=== PATIENT | male | born 1950 | race Caucasian/White ===

== ENCOUNTER 2016-12-03 22:59 | Emergency (ER) | payer BC ==
[2016-12-03 23:46] VITALS: BP 105/66; PULSE 86; TEMP 98.3; BMI 36.9
[2016-12-04 02:21] LABS: BASOPHIL 0.9 % (0-2.0); EOSINOPHIL 1.9 % (0-4.5); MCH 27.8 pg (25.7-33.7); MEAN CELL VOLUME 81.9 fl (80-96); MEAN PLT VOLUME 7.2 fl (7.5-11.1); NEUTROPHILS 85.4 % (42.8-82.8); PLATELET COUNT 189 K/MM3 (134-434); URINE APPEARANCE CLEAR; URINE BILIRUBIN NEGATIVE (NEGATIVE); URINE BLOOD NEGATIVE (NEGATIVE); URINE COLOR LT. YELLOW; URINE GLUCOSE (UA) NEGATIVE (NEGATIVE); URINE KETONE NEGATIVE (NEGATIVE); URINE LEUK ESTERASE NEGATIVE (NEGATIVE); URINE NITRITE NEGATIVE (NEGATIVE); URINE PROTEIN TRACE (NEGATIVE); URINE UROBILINOGEN 0.2 mg/dL (0.2-1.0); WHITE BLOOD COUNT 8.6 K/mm3 (4.0-10.0)
[2016-12-04 02:39] LABS: INR 1.06 (0.82-1.09); PROTHROMBIN TIME (PATIENT) 11.7 SEC (9.98-11.88)
[2016-12-04 02:49] LABS: ALBUMIN 3.4 g/dl (3.4-5.0); ANION GAP 8 (8-16); CALCIUM 9.4 mg/dL (8.5-10.1); CO2 29 mmol/L (21-32); CREATININE 1.3 mg/dL (0.7-1.3); GLUCOSE,RANDOM 109 mg/dL (74-106); MAGNESIUM 2.6 mg/dL (1.8-2.4); TOT PROT 6.9 g/dl (6.4-8.2)
[2016-12-04 02:50] LABS: ALK PHOS 74 U/L (45-117); BILIRUBIN,TOTAL 0.4 mg/dL (0.2-1.0); SGOT/AST 19 U/L (15-37); SGPT/ALT 41 U/L (12-78)
--- NOTE | 2016-12-04 04:15 | PDOC ---
History of Present Illness - General Chief Complaint: Seizure Stated Complaint: SEIZURE Time Seen by Provider: 12/03/16 23:24 - History of Present Illness Initial Comments: 12/04/16 04:14 CHIEF COMPLAINT: HISTORY OF PRESENT ILLNESS: 66 yo M with hx of generalizes seizures (per Dr. Aly) presents to ED s/p witnessed seizure by . is at bedside and reports that she was in the bedroom when she heard the patient in the living room wheezing. The patient had been watching baseball and when the went in to see him, he was awake with his eyes open but unresponsive. Patient states that he has no recollection of the incident and per patient just became responsive on arrival to the ED. PAST MEDICAL HISTORY: Denies past medical history FAMILY HISTORY: Denies SOCIAL HISTORY: Lives at home with ____. Occupation: . Denies tobacco, alcohol, illicit drug use. SURGICAL HISTORY: Denies ALLERGIES: No known drug allergies REVIEW OF SYSTEMS General/Constitutional: Denies fever or chills. Denies weakness, weight change. HEENT: Denies change in vision. Denies ear pain or discharge. Denies sore throat. Cardiovascular: Denies chest pain or shortness of breath. Respiratory: Denies cough, wheezing, or hemoptysis. Gastrointestinal: Denies nausea, vomiting, diarrhea or constipation. Denies rectal bleeding. Genitourinary: Denies dysuria, frequency, or change in urination. Musculoskeletal: Denies joint or muscle swelling or pain. Denies neck or back pain. Skin and breasts: Denies rash or easy bruising. Neurologic: Denies headache, vertigo, loss of consciousness, or loss of sensation. Psychiatric: Denies depression or anxiety. Endocrine: Denies increased thirst. Denies abnormal weight change. Hematologic/Lymphatic: Denies anemia, easy bleeding, or history of blood clots. Allergic/Immunologic: Denies hives or skin allergy. Denies latex allergy. PHYSICAL EXAM General Appearance: Well-appearing, appropriately dressed. No apparent distress , no intoxication. HEENT: EOMI, PERRLA, normal ENT inspection, normal voice, TMs normal, pharynx normal. No conjunctival pallor. No photophobia, scleral icterus. Neck: Supple. Trachea midline. No tenderness, rigidity, carotid bruit, stridor , lymphadenopathy, or thyromegaly. Respiratory/Chest: Lungs CTAB. No shortness of breath, chest tenderness, respiratory distress, accessory muscle use. No crackles, rales, rhonchi, stridor , wheezing, dullness Cardiovascular: RRR. S1, S2. No JVD, murmur, bradycardia, tachycardia. Vascular Pulses: Dorsalis-Pedis (R): 2+, Dorsalis-Pedis (L): 2+ Gastrointestinal/Abdominal: Normal bowel sounds. Abdomen soft, non-distended. No tenderness or rebound tenderness. No organomegaly, pulsatile mass, guarding , hernia, hepatomegaly, splenomegaly. Lymphatic: No adenopathy, tenderness. Musculoskeletal/Extremities: Normal inspection. FROM of all extremities, normal capillary refill. Pelvis Stable. No CVA tenderness. No tenderness to extremities, pedal edema, swelling, erythema or deformity. Integumentary: Appropriate color, dry, warm. 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 Fully oriented, alert. Appropriate mood/affect. Motor strength 5/5. No appreciable EOM palsy, facial droop or sensory deficit. 12/04/16 04:16 Past History - Past Medical History Allergies/Adverse Reactions: Allergies Allergy/AdvReac Type Severity Reaction Status Date / Time sulfamethoxazole Allergy Intermediate Hives Verified 12/03/16 23:44 [From Bactrim] trimethoprim [From Bactrim] Allergy Intermediate Hives Verified 12/03/16 23:44 ciprofloxacin Allergy Unknown Verified 12/03/16 23:44 Penicillins Allergy Unknown Verified 12/03/16 23:44 sulfasalazine Allergy Unknown Verified 12/03/16 23:44 Home Medications: Ambulatory Orders Aspirin [Aspir 81] 81 mg PO DAILY 05/21/12 Aspirin [ASA -] 81 mg PO DAILY #0 01/02/16 Levetiracetam [Keppra -] 250 mg PO BID #6 tablet 04/25/16 Levetiracetam [Keppra -] 500 mg PO BID #60 tablet 04/25/16 Atorvastatin Calcium 10 mg PO HS tablet 05/21/16 Bicalutamide 50 mg PO DAILY tablet 05/21/16 Levetiracetam 500 mg PO BID tablet 05/21/16 Anemia: No Asthma: No Cancer: Yes (prostate) Cardiac Disorders: No CVA: No COPD: No Dementia: No Diabetes: No GI Disorders: No Disorders: Yes (BPH) HTN: Yes Hypercholesterolemia: Yes Liver Disease: No Seizures: No Thyroid Disease: No - Surgical History Abdominal Surgery: No Appendectomy: No Cardiac Surgery: No Cholecystectomy: No Lung Surgery: No Neurologic Surgery: No Orthopedic Surgery: Yes (LEFT KNEE SURGERY) - Immunization History Immunization Up to Date: Yes - Psycho/Social/Smoking Cessation Hx Anxiety: No Suicidal Ideation: No Smoking Status: Yes Smoking History: Unknown if ever smoked Have you smoked in the past 12 months: No Number of Cigarettes Smoked Daily: 20 (Frequently uses E-cigs) If you are a former smoker, when did you quit?: 3 years Information on smoking cessation initiated: No Hx Alcohol Use: No Drug/Substance Use Hx: No Substance Use Type: None Hx Substance Use Treatment: No *Physical Exam - Vital Signs Last Vital Signs Temp Pulse Resp BP Pulse Ox 98.3 F 86 14 105/66 93 L 12/03/16 23:44 12/03/16 23:44 12/03/16 23:44 12/03/16 23:44 12/03/16 23:44 ED Treatment Course - LABORATORY CBC & Chemistry Diagram: 12/04/16 02:11 12/04/16 02:11 - ADDITIONAL ORDERS Additional order review: Laboratory Results 12/04/16 12/04/16 12/04/16 02:11 02:11 02:11 WBC 8.6 D Corrected WBC (auto) RBC 4.08 Hgb 11.3 L Hct 33.4 L MCV 81.9 MCH 27.8 MCHC 34.0 RDW 15.0 Plt Count 189 MPV 7.2 L Add Manual Diff Neutrophils % 85.4 H D Lymphocytes % 6.4 L D Monocytes % 5.4 Eosinophils % 1.9 Basophils % 0.9 Differential Comment Smudge Cells Platelet Estimate Platelet Comment Normal RBC Morphology RBC Morphology INR 1.06 Sodium 138 Potassium 4.0 Chloride 101 Carbon Dioxide 29 Anion Gap 8 BUN 31 H Creatinine 1.3 Creat Clearance w eGFR 54.90 Random Glucose 109 H Lactic Acid Calcium 9.4 Magnesium 2.6 H Total Bilirubin 0.4 AST 19 D ALT 41 Alkaline Phosphatase 74 Total Protein 6.9 Albumin 3.4 Urine Color Urine Appearance Urine pH Urine Protein Urine Glucose (UA) Urine Ketones Urine Blood Urine Nitrite Urine Bilirubin Urine Urobilinogen Ur Leukocyte Esterase 12/04/16 12/04/16 12/04/16 02:11 01:14 01:14 WBC Corrected WBC (auto) RBC Hgb Hct MCV MCH MCHC RDW Plt Count MPV Add Manual Diff Neutrophils % Lymphocytes % Monocytes % Eosinophils % Basophils % Differential Comment Smudge Cells Platelet Estimate Platelet Comment Normal RBC Morphology RBC Morphology INR Sodium Potassium Chloride Carbon Dioxide Anion Gap BUN Creatinine Creat Clearance w eGFR Random Glucose Lactic Acid 1.6 Calcium Magnesium Cancelled Total Bilirubin AST ALT Alkaline Phosphatase Total Protein Albumin Urine Color Lt. yellow Urine Appearance Clear Urine pH 6.0 Urine Protein Trace H Urine Glucose (UA) Negative Urine Ketones Negative Urine Blood Negative Urine Nitrite Negative Urine Bilirubin Negative Urine Urobilinogen 0.2 Ur Leukocyte Esterase Negative 12/04/16 12/04/16 12/04/16 01:14 01:14 01:14 WBC Cancelled Corrected WBC (auto) Cancelled RBC Cancelled Hgb Cancelled Hct Cancelled MCV Cancelled MCH Cancelled MCHC Cancelled RDW Cancelled Plt Count Cancelled MPV Cancelled Add Manual Diff Cancelled Neutrophils % Cancelled Lymphocytes % Cancelled Monocytes % Cancelled Eosinophils % Cancelled Basophils % Cancelled Differential Comment Cancelled Smudge Cells Cancelled Platelet Estimate Cancelled Platelet Comment Cancelled Normal RBC Morphology Cancelled RBC Morphology Cancelled INR Cancelled Sodium Cancelled Potassium Cancelled Chloride Cancelled Carbon Dioxide Cancelled Anion Gap Cancelled BUN Cancelled Creatinine Cancelled Creat Clearance w eGFR Cancelled Random Glucose Cancelled Lactic Acid Calcium Cancelled Magnesium Total Bilirubin Cancelled AST Cancelled ALT Cancelled Alkaline Phosphatase Cancelled Total Protein Cancelled Albumin Cancelled Urine Color Urine Appearance Urine pH Urine Protein Urine Glucose (UA) Urine Ketones Urine Blood Urine Nitrite Urine Bilirubin Urine Urobilinogen Ur Leukocyte Esterase 12/04/16 12/04/16 02:11 01:14 RBC 4.08 Cancelled MCV 81.9 Cancelled MCHC 34.0 Cancelled RDW 15.0 Cancelled MPV 7.2 L Cancelled Neutrophils % 85.4 H D Cancelled Lymphocytes % 6.4 L D Cancelled Monocytes % 5.4 Cancelled Eosinophils % 1.9 Cancelled Basophils % 0.9 Cancelled - RADIOLOGY Radiology Studies Ordered: Category Date Time Status HEAD CT WITHOUT CONTRAST [CT] Stat CT Scan 12/04/16 03:10 Taken *DC/Admit/Observation/Transfer Diagnosis at time of Disposition: Seizure - Discharge Dispostion Disposition: HOME Condition at time of disposition: Stable Admit: No - Referrals Referrals: Hebert Way MD [Primary Care Provider] - - Patient Instructions Printed Discharge Instructions: DI for Seizure Disorder -- Adult Additional Instructions: Please keep your appointment with Dr. Aly on as planned. If you experience any other seizure episodes, loss of consciousness, headache, chest pain, shortness of breath, palpitations, dizziness, or any new or worsening symptoms, please return to the ER.
--- NOTE | 2016-12-04 15:30 | EKG ---
Test Reason : Blood Pressure : / mmHG Vent. Rate : 067 BPM Atrial Rate : 067 BPM P-R Int : 170 ms QRS Dur : 092 ms QT Int : 380 ms P-R-T Axes : 060 -31 022 degrees QTc Int : 401 ms POOR DATA QUALITY, INTERPRETATION MAY BE ADVERSELY AFFECTED NORMAL SINUS RHYTHM LEFT AXIS DEVIATION CANNOT RULE OUT ANTERIOR INFARCT , AGE UNDETERMINED ABNORMAL ECG WHEN COMPARED WITH ECG OF 22-APR-2016 20:57, VENT. RATE HAS DECREASED BY 41 BPM MINIMAL CRITERIA FOR ANTERIOR INFARCT ARE NOW PRESENT Confirmed by KURT LEONE MD ([id number]) on 12/04/2016 3:30:39 PM Referred By: Confirmed By:KURT LEONE MD
== END 2016-12-04 04:27 | disposition home or self-care (01) ==
LOC: JER 22:59
DX: G40.309 Generalized idiopathic epilepsy and epileptic syndromes, not intractable, without status epilepticus (principal); I10 Essential (primary) hypertension; E78.00 Pure hypercholesterolemia, unspecified; Z85.46 Personal history of malignant neoplasm of prostate; Z79.82 Long term (current) use of aspirin; Z88.2 Allergy status to sulfonamides
CPT/HCPCS: 36415; 70450-TC; 80053; 81003; 83605; 83735; 85025; 85610; 87086; 93005; 93010; 99282-25

== ENCOUNTER 2020-11-26 09:50 | Emergency (ER) | payer OTHER ==
[2020-11-27 13:08] LABS: SARS-CoV-2 NAA Not Detected (Not Detected)
== END 2020-11-26 10:27 | disposition home or self-care (01) ==
LOC: JVIRT 09:50
DX: Z20.822 Contact with and (suspected) exposure to COVID-19 (principal)
CPT/HCPCS: C9803; Q3014-GT; U0003; U0005

== ENCOUNTER 2022-12-26 17:26 | Emergency (ER) | payer OTHER ==
[2022-12-26 17:39] VITALS: BP 140/62; PULSE 66; RESP 18; TEMP 98.2; BMI 33.1
[2022-12-26] MEDS ORDERED: DOXYCYCLINE HYCLATE 100 MG CAPSULE PO ONE ×2 (19:27→19:29)
== END 2022-12-26 19:55 | disposition home or self-care (01) ==
LOC: JER 17:26
DX: S91.101A Unspecified open wound of right great toe without damage to nail, initial encounter (principal); L03.115 Cellulitis of right lower limb; X58.XXXA Exposure to other specified factors, initial encounter
CPT/HCPCS: 99283-25

== ENCOUNTER 2023-10-27 18:10 | Emergency (ER) | payer OTHER ==
[2023-10-27 19:24] VITALS: BP 142/61; PULSE 80; RESP 17; BMI 31.9
[2023-10-27] MEDS ORDERED: ACETAMINOPHEN 325 MG TABLET (FP) ONE (20:09)
[2023-10-27] MEDS: ACETAMINOPHEN 325 MG TABLET (FP) PO ONE (20:11)
[2023-10-27 22:15] VITALS: TEMP 98.8
== END 2023-10-27 22:18 | disposition home or self-care (01) ==
LOC: JER 18:10
DX: U07.1 COVID-19 (principal); R05.9 Cough, unspecified; R68.83 Chills (without fever)
CPT/HCPCS: 0241U-QW; 70450-TC; 71045-TC-FY; 99285-25

== ENCOUNTER 2023-11-02 08:41 | Emergency (ER) | payer OTHER ==
[2023-11-02 09:05] VITALS: BP 110/56; PULSE 73; RESP 16; TEMP 98.1; BMI 33.4
[2023-11-02 10:30] LABS: HEMATOCRIT 29.1 % (35.4-49); MCH 28.2 pg (25.7-33.7); MCHC 34.4 g/dl (32.0-35.9); MEAN CELL VOLUME 81.9 fl (80-96); MEAN PLT VOLUME 6.9 fl (7.5-11.1); PLATELET COUNT 214 10^3/uL (134-434); RBC 3.56 M/mm3 (4.00-5.60); RDW 14.3 % (11.9-15.9); WHITE BLOOD COUNT 9.4 K/mm3 (4.0-10.0)
[2023-11-02 10:54] LABS: POTASSIUM 4.3 mmol/L (3.5-5.1)
[2023-11-02 10:57] LABS: CALCIUM 9.2 mg/dL (8.5-10.1)
[2023-11-02 10:59] LABS: BLOOD UREA NITROGEN 28.6 mg/dL (7-18)
[2023-11-02 11:00] LABS: CREATININE 1.4 mg/dL (0.55-1.3)
[2023-11-02 11:02] LABS: BILIRUBIN,TOTAL 0.4 mg/dL (0.2-1); TOT PROT 6.7 g/dl (6.4-8.2)
[2023-11-02] MEDS: SODIUM CHLORIDE 500 ML IV STA (11:30)
[2023-11-02] MEDS ORDERED: SODIUM CHLORIDE 0.9% 1000 ML INFUS.BAG IV ONE (11:36)
[2023-11-02 11:42] LABS: ANISOCYTOSIS 0; MACROCYTOSIS 0; OVALOCYTE 1+
[2023-11-02 11:43] LABS: PH,URINE 5.5 (5.0-8.0); URINE APPEARANCE CLEAR; URINE BILIRUBIN NEGATIVE (NEGATIVE); URINE COLOR YELLOW; URINE GLUCOSE (UA) NEGATIVE (NEGATIVE); URINE KETONE NEGATIVE (NEGATIVE); URINE LEUK ESTERASE NEGATIVE (NEGATIVE); URINE NITRITE NEGATIVE (NEGATIVE); URINE PROTEIN NEGATIVE (NEGATIVE); URINE UROBILINOGEN 0.2 mg/dL (0.2-1.0)
== END 2023-11-02 13:23 | disposition left against medical advice (07) ==
LOC: JER 08:41
DX: S50.02XA Contusion of left elbow, initial encounter (principal); S50.311A Abrasion of right elbow, initial encounter; R55 Syncope and collapse; U07.1 COVID-19; R05.9 Cough, unspecified; W01.0XXA Fall on same level from slipping, tripping and stumbling without subsequent striking against object, initial encounter
CPT/HCPCS: 0241U-QW; 36415; 80053; 81003; 83735; 84484; 85025; 87086; 93005; 93010; 99284-25

== ENCOUNTER 2024-01-22 08:25 | Emergency (ER) | payer OTHER ==
[2024-01-22 08:32] VITALS: BP 134/67; PULSE 72; RESP 16; TEMP 98.4; BMI 34.2
[2024-01-22 09:40] LABS: INR 1.09 (0.83-1.09); PROTHROMBIN TIME (PATIENT) 12.4 SEC (9.7-13.0)
[2024-01-22 09:43] LABS: ACTIVATED PTT 53.6 SECONDS (25.2-36.5); HEMATOCRIT 33.7 % (35.4-49); HEMOGLOBIN 10.8 G/dL (11.7-16.9); MCH 27.2 pg (25.7-33.7); MEAN PLT VOLUME 7.5 fl (7.5-11.1); PLATELET COUNT 226.4 10^3/uL (134-434); RBC 3.96 10^6/uL (4.00-5.60); RDW 15.4 % (11.9-15.9); WHITE BLOOD COUNT 9.1 10^3/uL (4.0-10.8)
[2024-01-22 09:51] LABS: ALBUMIN 3.8 g/dl (3.4-5.0); BILIRUBIN,TOTAL 0.4 mg/dl (0.2-1); CALCIUM 9.6 mg/dl (8.5-10.1); CREATININE 1.4 mg/dl (0.6-1.3); POTASSIUM 4.2 mmol/L (3.5-5.1); TOT PROT 6.7 g/dl (6.4-8.2)
[2024-01-22 09:53] LABS: PLATELET ESTIMATE ADEQUATE
[2024-01-22] MEDS: SODIUM CHLORIDE 0.9% 500 ML INFUS.BAG IV ONE (10:07)
[2024-01-22 12:31] LABS: HIV INTERPRETATION NEGATIVE (NEGATIVE)
== END 2024-01-22 13:45 | disposition home or self-care (01) ==
LOC: FER 08:25
DX: R31.9 Hematuria, unspecified (principal); N30.90 Cystitis, unspecified without hematuria
CPT/HCPCS: 36415; 74177-TC; 76775-TC; 80053; 81003; 81015; 85027; 85610; 85730; 86803; 86850; 86900; 86901; 87086; 87389; 99285-25; Q9967

== ENCOUNTER 2024-07-03 18:22 | Inpatient (IN) | payer OTHER ==
[2024-07-03 20:25] LABS: BASO % 0.6 % (0-2.0); EOS % 2.7 % (0-4.5); HEMATOCRIT 28.7 % (35.4-49); HEMOGLOBIN 9.9 GM/dL (11.7-16.9); LYMPH % 6.9 % (8-40); MCH 27.8 pg (25.7-33.7); MCHC 34.4 g/dl (32.0-35.9); MEAN CELL VOLUME 80.9 fl (80-96); MEAN PLT VOLUME 7.2 fl (7.5-11.1); MONO % 7.7 % (3.8-10.2); NEUT % 82.1 % (42.8-82.8); PLATELET COUNT 178 10^3/uL (134-434); RBC 3.55 M/mm3 (4.00-5.60); RDW 14.9 % (11.9-15.9); WHITE BLOOD COUNT 9.6 K/mm3 (4.0-10.0)
[2024-07-03 20:27] LABS: INR 1.23 (0.83-1.09); PROTHROMBIN TIME (PATIENT) 13.4 SEC (9.7-13.0)
[2024-07-03 20:30] LABS: ACTIVATED PTT 46.5 SECONDS (25.2-36.5)
[2024-07-03 20:45] LABS: CALCIUM 8.8 mg/dL (8.5-10.1); POTASSIUM 4.3 mmol/L (3.5-5.1)
[2024-07-03 20:46] LABS: BLOOD UREA NITROGEN 44.3 mg/dL (7-18)
[2024-07-03 20:49] LABS: CREATININE 1.6 mg/dL (0.55-1.3)
[2024-07-03 20:50] LABS: BILIRUBIN,TOTAL 0.3 mg/dL (0.2-1)
[2024-07-03] MEDS ORDERED: ENOXAPARIN NA (PORCINE) 100 MG/1 ML DISP.SYRIN SQ ONE (21:09)
[2024-07-03] MEDS: ENOXAPARIN NA (PORCINE) 100 MG/1 ML DISP.SYRIN SQ SCH (21:14)
[2024-07-03] MEDS ORDERED: APIXABAN 5 MG TABLET PO SCH (22:00)
[2024-07-04 00:43] VITALS: BMI 35.2
[2024-07-04 08:19] LABS: BASO % 1.2 % (0-2.0); EOS % 4.2 % (0-4.5); HEMATOCRIT 27.5 % (35.4-49); LYMPH % 11.7 % (8-40); MCH 27.1 pg (25.7-33.7); MCHC 32.8 g/dl (32.0-35.9); MEAN CELL VOLUME 82.6 fl (80-96); MEAN PLT VOLUME 7.3 fl (7.5-11.1); MONO % 7.8 % (3.8-10.2); NEUT % 75.1 % (42.8-82.8); PLATELET COUNT 175 10^3/uL (134-434); RBC 3.33 M/mm3 (4.00-5.60); RDW 14.6 % (11.9-15.9); WHITE BLOOD COUNT 7.5 K/mm3 (4.0-10.0)
[2024-07-04 08:29] LABS: POTASSIUM 4.2 mmol/L (3.5-5.1)
[2024-07-04 08:31] LABS: MAGNESIUM 2.2 mg/dL (1.8-2.4)
[2024-07-04 08:32] LABS: ALBUMIN 2.7 g/dl (3.4-5.0); BLOOD UREA NITROGEN 41.8 mg/dL (7-18); CALCIUM 8.6 mg/dL (8.5-10.1)
[2024-07-04 08:35] LABS: CREATININE 1.5 mg/dL (0.55-1.3); PHOSPHOROUS 3.2 mg/dL (2.5-4.9)
[2024-07-04 08:37] LABS: BILIRUBIN,TOTAL 0.4 mg/dL (0.2-1)
[2024-07-04 08:38] LABS: TOT PROT 6.4 g/dl (6.4-8.2)
[2024-07-04] MEDS ORDERED: PNEUMOC 20-VAL CONJ-DIP CRM/PF 0.5 ML SYRINGE IM ONE (10:00)
[2024-07-04] MEDS: APIXABAN 5 MG TABLET PO SCH (12:03)
[2024-07-04] MEDS: PANTOPRAZOLE SODIUM 40 MG VIAL IVPUSH SCH (12:03)
[2024-07-04] MEDS: levETIRAcetam 500 MG TABLET (FP) PO SCH (12:04)
[2024-07-04] MEDS: amLODIPine BESYLATE 10 MG TABLET (FP) PO SCH (12:04)
[2024-07-04] MEDS: SERTRALINE HCL 50 MG TABLET (FP) PO SCH (12:04)
[2024-07-04] MEDS ORDERED: HEPARIN NA (PORCINE) 5,000 UNITS/ML 1ML VIAL IVPUSH PRN ×2 (13:42)
[2024-07-04] MEDS: HEPARIN NA (PORCINE) 5,000 UNITS/ML 1ML VIAL IVPUSH ONE (14:25)
[2024-07-04] MEDS: HEPARIN INFUSION - 25,000 UNITS/500 ML INFUS.BAG IVPB SCH (14:33)
[2024-07-04] MEDS: SODIUM CHLORIDE 1,000 ML IV SCH (14:46)
[2024-07-04 20:27] LABS: URINE APPEARANCE CLEAR; URINE BILIRUBIN NEGATIVE (NEGATIVE); URINE COLOR YELLOW; URINE GLUCOSE (UA) NEGATIVE (NEGATIVE); URINE KETONE NEGATIVE (NEGATIVE); URINE LEUK ESTERASE NEGATIVE (NEGATIVE); URINE NITRITE NEGATIVE (NEGATIVE); URINE PROTEIN NEGATIVE (NEGATIVE); URINE UROBILINOGEN 0.2 mg/dL (0.2-1.0)
[2024-07-04] MEDS: ATORVASTATIN CA 10 MG TABLET (FP) PO SCH (21:26)
[2024-07-04] MEDS: MIRTAZAPINE 15 MG TABLET (FP) PO SCH (21:26)
[2024-07-05 07:50] LABS: BASO % 1.1 % (0-2.0); EOS % 5.8 % (0-4.5); HEMATOCRIT 27.6 % (35.4-49); HEMOGLOBIN 9.1 GM/dL (11.7-16.9); MCH 26.9 pg (25.7-33.7); MEAN CELL VOLUME 81.5 fl (80-96); MEAN PLT VOLUME 7.3 fl (7.5-11.1); MONO % 8.3 % (3.8-10.2); NEUT % 73.8 % (42.8-82.8); PLATELET COUNT 192 10^3/uL (134-434); RBC 3.38 M/mm3 (4.00-5.60); RDW 14.5 % (11.9-15.9); WHITE BLOOD COUNT 6.8 K/mm3 (4.0-10.0)
[2024-07-05 07:58] LABS: POTASSIUM 3.9 mmol/L (3.5-5.1)
[2024-07-05 08:28] LABS: CALCIUM 9.3 mg/dL (8.5-10.1)
[2024-07-05 08:55] LABS: ALBUMIN 2.8 g/dl (3.4-5.0); BILIRUBIN,TOTAL 0.4 mg/dL (0.2-1); BLOOD UREA NITROGEN 37.4 mg/dL (7-18); CREATININE 1.3 mg/dL (0.55-1.3); MAGNESIUM 2.3 mg/dL (1.8-2.4); TOT PROT 6.8 g/dl (6.4-8.2)
[2024-07-05] MEDS: PANTOPRAZOLE 40 MG TABLET PO SCH (10:33)
[2024-07-05] MEDS: NICOTINE 7 MG/24 HOURS TOPICAL PATCH TD SCH (20:01)
[2024-07-06 07:59] LABS: EOS % 6.3 % (0-4.5); HEMATOCRIT 26.2 % (35.4-49); HEMOGLOBIN 8.7 GM/dL (11.7-16.9); LYMPH % 14.2 % (8-40); MCH 27.1 pg (25.7-33.7); MCHC 33.2 g/dl (32.0-35.9); MEAN CELL VOLUME 81.8 fl (80-96); MEAN PLT VOLUME 7.2 fl (7.5-11.1); MONO % 8.6 % (3.8-10.2); NEUT % 69.9 % (42.8-82.8); PLATELET COUNT 191 10^3/uL (134-434); RDW 14.7 % (11.9-15.9); WHITE BLOOD COUNT 6.5 K/mm3 (4.0-10.0)
[2024-07-06 08:20] LABS: POTASSIUM 4.5 mmol/L (3.5-5.1)
[2024-07-06 09:39] LABS: ALBUMIN 2.7 g/dl (3.4-5.0); BILIRUBIN,TOTAL 0.4 mg/dL (0.2-1); CALCIUM 8.9 mg/dL (8.5-10.1); CREATININE 1.4 mg/dL (0.55-1.3); TOT PROT 6.4 g/dl (6.4-8.2)
[2024-07-06 09:46] LABS: MAGNESIUM 2.4 mg/dL (1.8-2.4)
[2024-07-06] MEDS ORDERED: oxyCODONE HCL 5 MG TABLET PO PRN ×2 (14:02→17:25)
[2024-07-06] MEDS ORDERED: ONDANSETRON 4 MG/2 ML VIAL IVPUSH PRN ×2 (14:02→17:25)
[2024-07-06] MEDS ORDERED: LACTATED RINGERS SOLUTION 1,000 ML IV SCH ×2 (14:15→17:25)
[2024-07-06] MEDS ORDERED: HEPARIN NA (PORCINE) 5,000 UNITS/ML 1ML VIAL ONE (14:24)
[2024-07-06] MEDS ORDERED: LIDOCAINE HCL 1%, 10 MG/ML (20ML VIAL) ONE (14:24)
[2024-07-06] MEDS ORDERED: MIDAZOLAM HCL 2 MG/2 ML SINGLE DOSE VIAL ONE (14:31)
[2024-07-06] MEDS ORDERED: PROPOFOL 20 ML ONE (14:31)
[2024-07-06] MEDS ORDERED: SUCCINYLCHOLINE CHLORIDE 200 MG/10 ML SYRINGE ONE (15:05)
[2024-07-06] MEDS ORDERED: LIDOCAINE HCL 2% 100 MG/5 ML DISP.SYRIN ONE (15:05)
[2024-07-06] MEDS ORDERED: ceFAZolin SODIUM 1 GM VIAL ONE (15:20)
[2024-07-06] MEDS: ceFAZolin SODIUM 1 GM VIAL IVPB ONE (15:22)
[2024-07-06] MEDS ORDERED: ONDANSETRON 4 MG/2 ML VIAL ONE (15:27)
[2024-07-06] MEDS ORDERED: DEXAMETHASONE SOD PHOSPHATE 4 MG/1 ML VIAL ONE (15:27)
[2024-07-06] MEDS: LIDOCAINE HCL 1%, 10 MG/ML (50 mL VIAL) INF ONE (15:33)
[2024-07-06] MEDS ORDERED: SEVOFLURANE 250 ML BTL ONE (16:55)
[2024-07-06] MEDS ORDERED: HEPARIN NA (PORCINE) 5,000 UNITS/ML 1ML VIAL IVPUSH PRN ×3 (17:25)
[2024-07-06] MEDS: HEPARIN INFUSION - 25,000 UNITS/500 ML INFUS.BAG IVPB SCH (17:45)
[2024-07-06] MEDS: SODIUM CHLORIDE 1,000 ML IV SCH (19:55)
[2024-07-06 20:05] LABS: HEMATOCRIT 28.2 % (35.4-49); HEMOGLOBIN 9.1 GM/dL (11.7-16.9); MCH 26.2 pg (25.7-33.7); MCHC 32.3 g/dl (32.0-35.9); MEAN PLT VOLUME 7.1 fl (7.5-11.1); PLATELET COUNT 174 10^3/uL (134-434); RBC 3.48 M/mm3 (4.00-5.60); RDW 14.6 % (11.9-15.9); WHITE BLOOD COUNT 11.7 K/mm3 (4.0-10.0)
[2024-07-06] MEDS: MIRTAZAPINE 15 MG TABLET (FP) PO SCH (21:38)
[2024-07-06] MEDS: ATORVASTATIN CA 10 MG TABLET (FP) PO SCH (21:38)
[2024-07-06] MEDS: levETIRAcetam 500 MG TABLET (FP) PO SCH (21:38)
[2024-07-07] MEDS: HEPARIN NA (PORCINE) 5,000 UNITS/ML 1ML VIAL IVPUSH PRN (04:52)
[2024-07-07 08:30] LABS: BASO % 0.6 % (0-2.0); EOS % 0.3 % (0-4.5); HEMATOCRIT 26.4 % (35.4-49); HEMOGLOBIN 8.7 GM/dL (11.7-16.9); LYMPH % 7.9 % (8-40); MCHC 33.1 g/dl (32.0-35.9); MEAN CELL VOLUME 81.7 fl (80-96); MEAN PLT VOLUME 7.7 fl (7.5-11.1); MONO % 6.3 % (3.8-10.2); NEUT % 84.9 % (42.8-82.8); PLATELET COUNT 166 10^3/uL (134-434); RBC 3.23 M/mm3 (4.00-5.60); RDW 14.4 % (11.9-15.9); WHITE BLOOD COUNT 10.2 K/mm3 (4.0-10.0)
[2024-07-07] MEDS ORDERED: TAMSULOSIN HCL 0.4 MG CAP PO SCH (08:30)
[2024-07-07 08:57] LABS: POTASSIUM 4.1 mmol/L (3.5-5.1)
[2024-07-07 09:00] LABS: ALBUMIN 2.7 g/dl (3.4-5.0); BLOOD UREA NITROGEN 32.8 mg/dL (7-18); CALCIUM 9.1 mg/dL (8.5-10.1); MAGNESIUM 2.3 mg/dL (1.8-2.4)
[2024-07-07 09:04] LABS: BILIRUBIN,TOTAL 0.4 mg/dL (0.2-1); CREATININE 1.4 mg/dL (0.55-1.3); TOT PROT 6.7 g/dl (6.4-8.2)
[2024-07-07] MEDS: amLODIPine BESYLATE 10 MG TABLET (FP) PO SCH (11:58)
[2024-07-07] MEDS: NICOTINE 7 MG/24 HOURS TOPICAL PATCH TD SCH (11:58)
[2024-07-07] MEDS: PANTOPRAZOLE 40 MG TABLET PO SCH (11:58)
[2024-07-07] MEDS: SERTRALINE HCL 50 MG TABLET (FP) PO SCH (11:58)
[2024-07-07] MEDS: TAMSULOSIN HCL 0.4 MG CAP PO SCH (11:59)
[2024-07-07] MEDS: APIXABAN 5 MG TABLET PO SCH (15:04)
[2024-07-07 18:16] LABS: HIV INTERPRETATION NEGATIVE (NEGATIVE)
[2024-07-07 18:52] LABS: HEMATOCRIT 29.3 % (35.4-49); HEMOGLOBIN 9.8 GM/dL (11.7-16.9); MCH 27.1 pg (25.7-33.7); MCHC 33.5 g/dl (32.0-35.9); MEAN CELL VOLUME 80.9 fl (80-96); PLATELET COUNT 161 10^3/uL (134-434); RBC 3.62 M/mm3 (4.00-5.60); RDW 14.6 % (11.9-15.9); WHITE BLOOD COUNT 8.8 K/mm3 (4.0-10.0)
[2024-07-08 08:23] LABS: HEMATOCRIT 25.6 % (35.4-49); HEMOGLOBIN 8.5 GM/dL (11.7-16.9); MCH 27.2 pg (25.7-33.7); MCHC 33.3 g/dl (32.0-35.9); MEAN CELL VOLUME 81.8 fl (80-96); PLATELET COUNT 127 10^3/uL (134-434); RBC 3.13 M/mm3 (4.00-5.60); RDW 14.7 % (11.9-15.9); WHITE BLOOD COUNT 6.2 K/mm3 (4.0-10.0)
[2024-07-08 08:48] LABS: POTASSIUM 4.1 mmol/L (3.5-5.1)
[2024-07-08 08:56] LABS: ALBUMIN 2.5 g/dl (3.4-5.0); BLOOD UREA NITROGEN 27.3 mg/dL (7-18); CALCIUM 8.6 mg/dL (8.5-10.1); CREATININE 1.3 mg/dL (0.55-1.3)
[2024-07-08 08:58] LABS: BILIRUBIN,TOTAL 0.4 mg/dL (0.2-1); TOT PROT 5.8 g/dl (6.4-8.2)
[2024-07-08 13:05] VITALS: RESP 18
[2024-07-08 15:00] LABS: HEMOGLOBIN 8.6 GM/dL (11.7-16.9); MCH 26.9 pg (25.7-33.7); MEAN CELL VOLUME 81.6 fl (80-96); MEAN PLT VOLUME 6.8 fl (7.5-11.1); PLATELET COUNT 129 10^3/uL (134-434); RBC 3.19 M/mm3 (4.00-5.60); WHITE BLOOD COUNT 7.7 K/mm3 (4.0-10.0)
[2024-07-08 15:09] VITALS: BP 103/54; PULSE 72; TEMP 97.9
== END 2024-07-08 16:38 | disposition home health service (06) | DRG 271 ==
LOC: JER 18:22 → JERBED 21:22 → OBSVTOIN 21:22 → J7W 07-04 00:16
PROVIDERS: ADMIT Student in an Organized Health Care Education/Training Program; ATTEND Physician Assistant
PROC: 04CD3ZZ Extirpation of Matter from Left Common Iliac Artery, Percutaneous Approach (ICD-10-PCS; 2024-07-06)
PROC: 0YQ Anatomical Regions, Lower Extremities, Repair (ICD-10-PCS; 2024-07-06)
PROC: 06CN3ZZ Extirpation of Matter from Left Femoral Vein, Percutaneous Approach (ICD-10-PCS; principal; 2024-07-06 14:30)
DX: I82.4Z2 Acute embolism and thrombosis of unspecified deep veins of left distal lower extremity (principal); N17.9 Acute kidney failure, unspecified; N18.9 Chronic kidney disease, unspecified; R33.9 Retention of urine, unspecified; I10 Essential (primary) hypertension; E78.5 Hyperlipidemia, unspecified; I12.9 Hypertensive chronic kidney disease with stage 1 through stage 4 chronic kidney disease, or unspecified chronic kidney disease; N20.0 Calculus of kidney; C61 Malignant neoplasm of prostate; D64.9 Anemia, unspecified; F41.8 Other specified anxiety disorders
CPT/HCPCS: 36415; 70450-TC; 76000-TC-FY; 76775-TC; 80053; 81003; 82728; 82962; 83540; 83550; 83735; 84100; 84466; 85025; 85027; 85045; 85610; 85730; 86705; 86803; 86850; 86900; 86901; 87340; 87389; 87517; 87522; 88304-TC; 93005; 93010; 93306-TC; 93970-TC; 94760; 97116-GP; 97161-GP; 99285-25; C1757; C1894; J1644

== ENCOUNTER 2024-07-19 10:27 | Observation (INO) | payer OTHER ==
[2024-07-19] MEDS ORDERED: NICOTINE 21 MG/24 HOURS TOPICAL PATCH ONE (11:35)
[2024-07-19] MEDS: NICOTINE 21 MG/24 HOURS TOPICAL PATCH TD SCH (11:40)
[2024-07-19 12:06] LABS: ABSOLUTE IMMATURE GRANULOCYTES 0.11 x10^3/uL (0.0-0.031); EOSINOPHIL % 3.2 % (0.8-7.0); EOSINOPHILS # 0.31 x10^3/uL (0.04-0.54); HEMATOCRIT 27.9 % (40.1-51.0); HEMOGLOBIN 8.9 g/dL (13.7-17.5); MCHC 31.9 g/dl (32.3-36.5); MEAN CELL VOLUME 86.1 fl (79.0-92.2); MEAN PLT VOLUME 9.5 fl (9.4-12.4); MONOCYTE # 0.62 x10^3/uL (0.30-0.82); MONOCYTE % 6.3 % (5.3-12.2); PLATELET COUNT 147 x10^3/uL (163-337)
[2024-07-19 12:13] LABS: INR 1.62 (0.83-1.09); PROTHROMBIN TIME (PATIENT) 17.7 SEC (9.7-13.0)
[2024-07-19 12:16] LABS: ACTIVATED PTT 56.5 SECONDS (25.2-36.5)
[2024-07-19 12:20] LABS: VENOUS BASE EXCESS 2.5 mmol/L (-2-2); VENOUS PCO2 49.7 mmHg (38-52); VENOUS PH 7.37 (7.310-7.410)
[2024-07-19 12:41] LABS: CHLORIDE 104 mmol/L (98-107); POTASSIUM 4.2 mmol/L (3.5-5.1); SODIUM 138 mmol/L (136-145)
[2024-07-19 12:43] LABS: BLOOD UREA NITROGEN 30.5 mg/dL (7-18)
[2024-07-19 12:44] LABS: ANION GAP 6 mmol/L (4-13); CO2 29 mmol/L (21-32); GLUCOSE,RANDOM 100 mg/dL (74-106); MAGNESIUM 2.2 mg/dL (1.8-2.4)
[2024-07-19 12:48] LABS: BILIRUBIN,TOTAL 0.4 mg/dL (0.2-1); CREATININE 1.3 mg/dL (0.55-1.3); PHOSPHOROUS 3.7 mg/dL (2.5-4.9); SGOT/AST 15 U/L (15-37); SGPT/ALT 37 U/L (13-61)
[2024-07-19 12:50] LABS: ALK PHOS 74 U/L (45-117); TOT PROT 6.8 g/dl (6.4-8.2)
[2024-07-19 14:12] LABS: URINE APPEARANCE CLEAR; URINE BILIRUBIN NEGATIVE (NEGATIVE); URINE COLOR YELLOW; URINE GLUCOSE (UA) NEGATIVE (NEGATIVE); URINE KETONE NEGATIVE (NEGATIVE); URINE LEUK ESTERASE NEGATIVE (NEGATIVE); URINE NITRITE NEGATIVE (NEGATIVE); URINE PROTEIN NEGATIVE (NEGATIVE); URINE UROBILINOGEN 0.2 mg/dL (0.2-1.0)
[2024-07-19 15:03] LABS: COCAINE, UR NEGATIVE (NEGATIVE); METHADONE, UR NEGATIVE (NEGATIVE); OPIATES, URI NEGATIVE (NEGATIVE); PHENCYCLIDINE,URINE NEGATIVE (NEGATIVE); URINE BENZODIAZEPINES NEGATIVE (NEGATIVE)
[2024-07-19 15:23] LABS: URINE AMPHETAMINES NEGATIVE (NEGATIVE); URINE BARBITURATES NEGATIVE (NEGATIVE)
[2024-07-19 15:43] VITALS: BMI 35.9
[2024-07-19] MEDS: ATORVASTATIN CA 10 MG TABLET (FP) PO SCH (21:54)
[2024-07-19] MEDS: APIXABAN 5 MG TABLET PO SCH (21:54)
[2024-07-19] MEDS: CALCIUM 500MG/VIT-D 200 UNITS COMBO TABLET (FP) PO SCH (21:54)
[2024-07-19] MEDS: levETIRAcetam 500 MG TABLET (FP) PO SCH (21:55)
[2024-07-19] MEDS: APIXABAN 5 MG TABLET PO ONE (23:05)
[2024-07-20 09:32] LABS: HEMATOCRIT 28.3 % (40.1-51.0); HEMOGLOBIN 8.7 g/dL (13.7-17.5); MCHC 30.7 g/dl (32.3-36.5)
[2024-07-20 09:50] LABS: POTASSIUM 4.3 mmol/L (3.5-5.1)
[2024-07-20 10:03] LABS: BLOOD UREA NITROGEN 28.1 mg/dL (7-18)
[2024-07-20 10:05] LABS: CALCIUM 9.2 mg/dL (8.5-10.1)
[2024-07-20 10:06] LABS: CREATININE 1.5 mg/dL (0.55-1.3); MAGNESIUM 2.1 mg/dL (1.8-2.4)
[2024-07-20 10:07] LABS: PHOSPHOROUS 3.9 mg/dL (2.5-4.9)
[2024-07-20] MEDS: TAMSULOSIN HCL 0.4 MG CAP PO SCH (11:00)
[2024-07-20] MEDS: PANTOPRAZOLE 40 MG TABLET PO SCH (11:01)
[2024-07-20] MEDS: APIXABAN 5 MG TABLET PO SCH ×2 (11:01→21:20)
[2024-07-20] MEDS: SERTRALINE HCL 50 MG TABLET (FP) PO SCH (11:02)
[2024-07-20] MEDS: SODIUM CHLORIDE 1,000 ML IV SCH (15:53)
[2024-07-20 18:23] LABS: MEAN PLT VOLUME 9.7 fl (9.4-12.4); PLATELET COUNT 169 x10^3/uL (163-337)
[2024-07-20] MEDS: traZODone HCL 50 MG TABLET (FP) PO SCH (21:20)
[2024-07-21 09:04] LABS: HEMATOCRIT 27.4 % (40.1-51.0); HEMOGLOBIN 8.4 g/dL (13.7-17.5); MCHC 30.7 g/dl (32.3-36.5); MEAN CELL VOLUME 86.2 fl (79.0-92.2); MEAN PLT VOLUME 9.1 fl (9.4-12.4); PLATELET COUNT 141 x10^3/uL (163-337); RDW 15.1 % (12.2-16.6)
[2024-07-21 10:00] LABS: BLOOD UREA NITROGEN 29.4 mg/dL (7-18); CALCIUM 9.4 mg/dL (8.5-10.1)
[2024-07-21 10:01] LABS: CREATININE 1.5 mg/dL (0.55-1.3)
[2024-07-21] MEDS: SODIUM CHLORIDE 1,000 ML IV SCH ×2 (11:16→15:58)
[2024-07-21] MEDS ORDERED: SODIUM CHLORIDE 1,000 ML IV SCH (15:19)
[2024-07-22 08:51] LABS: ABSOLUTE IMMATURE GRANULOCYTES 0.05 x10^3/uL (0.0-0.031); BASOPHILS # 0.07 x10^3/uL (0.01-0.08); EOSINOPHIL % 3.5 % (0.8-7.0); EOSINOPHILS # 0.38 x10^3/uL (0.04-0.54); HEMATOCRIT 27.5 % (40.1-51.0); HEMOGLOBIN 8.3 g/dL (13.7-17.5); MCHC 30.2 g/dl (32.3-36.5); MEAN CELL VOLUME 87.3 fl (79.0-92.2); MEAN PLT VOLUME 9.7 fl (9.4-12.4); MONOCYTE # 0.55 x10^3/uL (0.30-0.82); PLATELET COUNT 158 x10^3/uL (163-337); RDW 15.2 % (12.2-16.6)
[2024-07-22 09:12] LABS: POTASSIUM 4.2 mmol/L (3.5-5.1)
[2024-07-22 09:23] LABS: BLOOD UREA NITROGEN 25.7 mg/dL (7-18); CALCIUM 8.9 mg/dL (8.5-10.1); MAGNESIUM 2.1 mg/dL (1.8-2.4)
[2024-07-22 09:27] LABS: CREATININE 1.4 mg/dL (0.55-1.3); PHOSPHOROUS 3.4 mg/dL (2.5-4.9)
[2024-07-22 18:10] VITALS: RESP 18
[2024-07-23 11:01] VITALS: BP 114/71; PULSE 98; TEMP 98
== END 2024-07-23 11:32 ==
LOC: JER 10:27 → JERBED 13:15 → J5S 15:02
PROVIDERS: ADMIT Internal Medicine
PROC: 3E0337Z Introduction of Electrolytic and Water Balance Substance into Peripheral Vein, Percutaneous Approach (ICD-10-PCS; principal; 2024-07-19)
DX: I12.9 Hypertensive chronic kidney disease with stage 1 through stage 4 chronic kidney disease, or unspecified chronic kidney disease (principal); N18.9 Chronic kidney disease, unspecified; G40.909 Epilepsy, unspecified, not intractable, without status epilepticus; N40.0 Benign prostatic hyperplasia without lower urinary tract symptoms; M48.061 Spinal stenosis, lumbar region without neurogenic claudication; N20.0 Calculus of kidney; Z86.73 Personal history of transient ischemic attack (TIA), and cerebral infarction without residual deficits; N28.1 Cyst of kidney, acquired; Z88.8 Allergy status to other drugs, medicaments and biological substances; Z88.0 Allergy status to penicillin; Z88.2 Allergy status to sulfonamides; Z87.891 Personal history of nicotine dependence; Z85.46 Personal history of malignant neoplasm of prostate; R60.0 Localized edema
CPT/HCPCS: 0241U-QW; 36415; 80048; 80053; 80307; 81003; 82803; 83735; 84100; 85025; 85027; 85610; 85730; 87086; 87635; 93005; 93010; 93970-TC; 93978; 97116-GP; 97161-GP; 99285-25; G0378